=== PATIENT | male | born 2000 | race Hispanic/Latino ===

== ENCOUNTER 2024-01-02 15:25 | Emergency (ER) | payer OTHER ==
[2024-01-02] MEDS ORDERED: KETOROLAC 30 MG/ML INJ ONE (15:37)
[2024-01-02] MEDS ORDERED: NA CHLORIDE 0.9% 1,000 ML ONE (15:37)
[2024-01-02] MEDS ORDERED: ONDANSETRON 4 MG/2 ML VIAL ONE (15:37)
[2024-01-02 15:55] LABS: Absolute Eosinophils 0.1 K/uL (0-0.5); Absolute Lymphocytes (CBC) 1.4 K/uL (0.7-4.9); Absolute Monocytes 0.5 K/uL (0.1-1.3); Absolute Neutrophil 4.5 K/uL (1.8-8.0); Basophils % 0.7 % (0-1.3); Eosinophils % 1.9 % (0-4.4); Hematocrit 39.2 % (39.6-49.0); Hemoglobin 13.1 g/dL (13.6-17.9); Lymphocytes % 21.1 % (15.3-44.8); MCH 29.9 pg (27.0-35.0); MCHC 33.5 g/dL (32.0-36.0); MCV 89.2 fL (80-100); MPV 8.6 fL (7.6-11.3); Monocytes % 8.2 % (3.3-12.3); Neutrophils % 68.1 % (41.7-73.7); Nucleated Red Blood Cells % 0.1 % (0-0); Platelets 223 thou/uL (152-406)
[2024-01-02 16:25] LABS: Albumin 3.7 g/dL (3.4-5.0); Albumin/Globulin Ratio 1.1 (1.1-1.8); Anion Gap 6.1 mEq/L (5.0-15.0); Bilirubin Total 0.7 mg/dL (0.2-1.0); Globulin 3.3 g/dL (2.3-3.5); Potassium 4.1 mEq/L (3.5-5.1)
--- NOTE | 2024-01-02 16:49 | RAD REPORT ---
EXAM DESCRIPTION: CTAbdomen Pelvis W Contrast - 01/02/2024 4:38 pm CLINICAL HISTORY: Abdominal pain. ABD PAIN COMPARISON: No comparisons TECHNIQUE: Biphasic CT imaging of the abdomen and pelvis was performed with 100 ml non-ionic IV cont rast. All CT scans are performed using dose optimization technique as appropriate and may include automated exposure control or mA/KV adjustment according to patient size. FINDINGS: The lung bases are clear. The liver, spleen, pancreas, adrenal glands and kidneys are within normal limits. No bowel obstruction, free air, free fluid or abscess. The appendix is normal. No evidence of signi ficant lymphadenopathy. No suspicious bony findings. IMPRESSION: No acute intra-abdominal or pelvic finding.
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
--- NOTE | 2024-01-02 16:55 | ER ---
Nurse's Notes [facility] Name: Amilcar Ortiz Age: 23 yrs Sex: Male : 2000 Arrival Date: 01/02/2024 Time: 15:25 Bed 12 Private MD: Diagnosis: Upper abdominal pain, unspecified Presentation: 01/01 15:31 Chief complaint: Patient states: Pt reports left-sided abdominal pain x3 days. Denies kb3 N/V/D/C. Coronavirus screen: Vaccine status: Patient reports being unvaccinated. Client denies travel out of the [place] in the last 14 days. Ebola Screen: Patient negative for fever greater than or equal to 101.5 degrees Fahrenheit, and additional compatible Ebola Virus Disease symptoms Patient denies exposure to infectious person. Patient denies travel to an Ebola-affected area in the 21 days before illness onset. Initial Sepsis Screen: Does the patient meet any 2 criteria? No. Patient's initial sepsis screen is negative. Does the patient have a suspected source of infection? No. Patient's initial sepsis screen is negative. Risk Assessment: Do you want to hurt yourself or someone else? Patient reports no desire to harm self or others. Onset of symptoms was December 30, 2023. 15:31 Method Of Arrival: Law Enforcement: [place] [employer] 3 15:31 Acuity: KEKE 3 kb3 Triage Assessment: 15:32 General: Appears in no apparent distress. Behavior is calm, cooperative. Pain: kb3 Complains of pain in left upper quadrant and left lower quadrant Pain does not radiate. Pain currently is 8 out of 10 on a pain scale. Quality of pain is described as sharp. GI: Abdomen is flat, Bowel sounds present X 4 quads. Abd is soft and non tender Reports lower abdominal pain, upper abdominal pain, Patient currently denies constipation, diarrhea, nausea, vomiting. Historical: - Allergies: 15:32 No Known Allergies; kb3 - Home Meds: 15:32 None [Active]; kb3 - PMHx: 15:32 None; kb3 - PSHx: 15:32 None; kb3 - Immunization history:: Adult Immunizations up to date. - Infectious Disease History:: Denies. - Social history:: Smoking status: Patient denies any tobacco usage or history of. Screenin:[address] [facility] ED Fall Risk Assessment (Adult) History of falling in the last 3 months, kb3 including since admission No falls in past 3 months (0 pts) Confusion or Disorientation No (0 pts) Intoxicated or Sedated No (0 pts) Impaired Gait No (0 pts) Mobility Assist Device Used No (0 pt) Altered Elimination No (0 pt) Score/Fall Risk Level 0 - 2 = Low Risk Oriented to surroundings. Abuse screen: Denies threats or abuse. Denies injuries from another. Nutritional screening: No deficits noted. Tuberculosis screening: No symptoms or risk factors identified. Assessment: 15:31 General: See triage note. kb3 Vital Signs: 15:31 BP 119 / 65; Pulse 58; Resp 18; Temp 98.8; Pulse Ox 98% ; Weight 68.04 kg; Height 5 ft. kb3 6 in. ; Pain 8/10; 17:21 BP 117 / 71; Pulse 62; Resp 18; Temp 98; Pulse Ox 100% ; Pain 0/10; kb3 15:31 Body Mass Index 24.21 (68.04 kg, 167.64 cm) kb3 15:31 Pain Scale: Adult kb3 17:21 Pain Scale: Adult kb3 ED Course: 15:26 Patient arrived in ED. me1 15:26 Chandana Del Rio MD is Attending Physician. ec2 15:32 Triage completed. kb3 15:32 Arm band placed on right wrist. kb3 15:40 No provider procedures requiring assistance completed. Inserted saline lock: 20 gauge kb3 in right antecubital area, using aseptic technique. Blood collected. 15:50 Patient has correct armband on for positive identification. Bed in low position. Call kb3 light in reach. Side rails up X2. Provided Education on: Plan of care, IV, labs, CT. 16:40 CT Abd/Pelvis - IV Contrast Only In Process Unspecified. EDMS 17:15 IV discontinued, intact, bleeding controlled, No redness/swelling at site. kb3 Administered Medications: 15:50 Drug: NS 0.9% IV 1000 ml IV at 1 bolus Per protocol; 1000 mL bolus Route: IV; Rate: 1 kb3 bolus; Site: right antecubital; 17:21 Follow up: Response: No adverse reaction; IV Status: Completed infusion; IV Intake: kb3 1000ml 15:50 Drug: TORadol - Ketorolac IVP 15 mg IVP once Route: IVP; Site: right antecubital; kb3 16:30 Follow up: Response: No adverse reaction; Pain is decreased kb3 15:50 Drug: Ondansetron IVP 4 mg IVP once; over 2 minutes Route: IVP; Site: right antecubital;kb3 16:30 Follow up: Response: No adverse reaction kb3 Medication: 15:31 VIS not applicable for this client. kb3 Intake: 17:21 IV: 1000ml; Total: 1000ml. kb3 Outcome: 16:54 Discharge ordered by . ec2 17:15 Discharged to Law Enforcement kb3 17:15 Condition: improved 17:15 Discharge instructions given to patient, Instructed on discharge instructions, follow up and referral plans. Demonstrated understanding of instructions, follow-up care, 17:22 Patient left the ED. kb3 Signatures: Dispatcher [employer] Milagros Casey RN RN kb3 Marlene Rabago RN RN me1 Chandana Del Rio MD MD ec2
[2024-01-02 17:29] VITALS: BP 117/71; TEMP 98; O2SAT 100
== END 2024-01-02 17:22 | disposition home or self-care (01) ==
LOC: ER 15:25
DX: R10.12 Left upper quadrant pain (principal)
CPT/HCPCS: 96361; 85025; 36415; 83690; 80053; 74177; 96375; 96374; 99284; Q9967; J2405; J7030